=== PATIENT | male | born 1965 ===

== ENCOUNTER 2017-07-29 19:48 | Emergency (ER) | payer OTHER ==
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
--- NOTE | 2017-07-29 21:28 | RAD ---
INDICATION: Facial trauma. COMPARISON: There are no prior studies available for comparison. TECHNIQUE: Contiguous axial sections of the axial images of the facial bones were obtained and reconstructed in the coronal and sagittal planes. FINDINGS: Soft tissue swelling is noted over the left orbit. The correa of the orbits and maxillary sinuses appear intact. The zygomatic arches appear intact. There is no evidence for a fracture of the mandible. The nasal bones appear intact. There is moderate deviation of the nasal septum toward the left side. The pterygoid plates appear intact. The paranasal sinuses appear clear. IMPRESSION: NO EVIDENCE OF FRACTURE.
== END 2017-07-29 21:38 | disposition home or self-care (01) ==
LOC: UCEAST 19:48
DX: S00.12XA Contusion of left eyelid and periocular area, initial encounter (principal); S09.90XA Unspecified injury of head, initial encounter; W22.8XXA Striking against or struck by other objects, initial encounter; Y93.9 Activity, unspecified; Y92.9 Unspecified place or not applicable; M25.512 Pain in left shoulder
CPT/HCPCS: 70486; 99211; G0463

== ENCOUNTER 2017-09-19 19:33 | Emergency (ER) | payer OTHER ==
[2017-09-19 20:35] VITALS: BP 130/91
[2017-09-19] MEDS ORDERED: Amoxicillin PO (*) 500 MG CAP PO ONE (20:48)
[2017-09-19] MEDS ORDERED: HYDROcodone/ACETAMIN 5-325 MG* 1 TAB PO ONE (20:48)
--- NOTE | 2017-09-19 21:03 | UC ---
UC Dental HPI - HPI Summary HPI Summary: Right lower dental pain and swelling second molar which is previously been filled is now painful with swelling around the site has a dentist appointment scheduled for this week - History of Current Complaint Chief Complaint: UCDentalProblem Stated Complaint: DENTAL COMPLAINT Time Seen by Provider: 09/19/17 20:40 Hx Obtained From: Patient Onset/Duration: Gradual Onset, Lasting Days, Still Present Severity: Moderate Pain Intensity: 4 Pain Scale Used: 0-10 Numeric Aggravating Factor(s): Chewing Alleviating Factor(s): Nothing Related History: Previous Dental Care on Same Tooth, Swelling - Allergies/Home Medications Allergies/Adverse Reactions: Allergies Allergy/AdvReac Type Severity Reaction Status Date / Time No Known Allergies Allergy Verified 09/19/17 20:35 Home Medications: Home Medications Ibuprofen TAB* [Advil TAB*] 400 mg PO DAILY PRN 09/19/17 [History Confirmed ] PMH/Surg Hx/FS Hx/Imm Hx Previously Healthy: No Psychological History: Depression - Surgical History Surgical History: Yes Surgery Procedure, Year, and Place: hemorrhoidectomy. Right knee surgery - Family History Known Family History: Positive: Other - high cholesterol - Social History Occupation: Employed Full-time Lives: With Family Alcohol Use: Weekly Substance Use Type: None Smoking Status (MU): Never Smoked Tobacco Review of Systems Constitutional: Negative Skin: Negative Eyes: Negative ENT: Dental Pain - Right lower jaw second molar Respiratory: Negative Cardiovascular: Negative Gastrointestinal: Negative Genitourinary: Negative Motor: Negative Neurovascular: Negative Musculoskeletal: Negative Neurological: Negative Psychological: Negative Is Patient Immunocompromised?: No All Other Systems Reviewed And Are Negative: Yes Physical Exam Triage Information Reviewed: Yes Appearance: Well-Appearing, No Pain Distress, Well-Nourished Vital Signs: Initial Vital Signs Temp 97.5 F 09/19/17 20:29 Pulse 65 09/19/17 20:29 Resp 16 09/19/17 20:29 BP 130/91 09/19/17 20:29 Pulse Ox 98 09/19/17 20:29 Vital Signs Reviewed: Yes Eye Exam: Normal Eyes: Positive: Conjunctiva Clear ENT Exam: Normal ENT: Positive: Normal ENT inspection, Hearing grossly normal, Dental tenderness , Uvula midline. Negative: Nasal congestion, Nasal drainage, Trismus, Muffled voice, Hoarse voice, Sinus tenderness Dental Exam: Normal Dental: Positive: Percussion Tenderness @ - Right lower jaw second molar Neck exam: Normal Neck: Positive: Supple, Nontender, No Lymphadenopathy Respiratory Exam: Normal Respiratory: Positive: Chest non-tender, No respiratory distress, No accessory muscle use Cardiovascular Exam: Normal Cardiovascular: Positive: RRR, Pulses Normal, Brisk Capillary Refill Musculoskeletal Exam: Normal Musculoskeletal: Positive: Strength Intact, ROM Intact, No Edema Neurological Exam: Normal Neurological: Positive: Alert, Muscle Tone Normal Psychological Exam: Normal Skin Exam: Normal Dental Complaint Course/Dx - Course Course Of Treatment: Amoxicillin ibuprofen hydrocodone for more severe pain warm compresses when necessary follow-up with the dentist this week as planned - Differential Dx/Diagnosis Provider Diagnoses: Dental abscess right lower jaw Discharge - Sign-Out/Discharge Documenting (check all that apply): Discharge - Discharge Plan Condition: Stable Disposition: HOME Prescriptions: Amoxicillin PO (*) [Amoxicillin 500 MG CAP*] 500 mg PO TID #29 cap Hydrocodone/Acetaminophen [Hydrocodone/Acetaminophen 5-325 mg] 1 tab PO QID PRN #8 tab MDD 4 PRN Reason: Pain Patient Education Materials: Dental Abscess (ED), Toothache (ED) Referrals: No Primary Care Phys,NOPCP [Primary Care Provider] - Additional Instructions: Follow with dentist on Thursday as planned - Billing Disposition and Condition Condition: STABLE Disposition: HOME
== END 2017-09-19 21:05 | disposition home or self-care (01) ==
LOC: UCEAST 19:33
DX: K04.7 Periapical abscess without sinus (principal)
CPT/HCPCS: 99212; A9270-GY; G0463